=== PATIENT | female | born 1955 | race Caucasian/White ===

== ENCOUNTER → 2019-01-28 | Outpatient (CLI) | payer OTHER ==
[~2019-01-28] MED LIST: ALBU90OI; ASPI81CH; ESTR2; Omeprazole20 M1
== END | disposition home or self-care (01) ==
LOC: LAB SHORT 14:58 → LAB 14:58
PROVIDERS: Family Medicine
DX: Z12.72 Encounter for screening for malignant neoplasm of vagina (principal); Z90.710 Acquired absence of both cervix and uterus
CPT/HCPCS: G0123

== ENCOUNTER → 2020-02-10 | Outpatient (CLI) | payer OTHER ==
[~2020-02-10] MED LIST changes: -ALBU90OI; +ALBU90OI INH; +ALLERCLEAR10 MG PO; -ASPI81CH; +Aspirin EC81 MG PO; +BENADRYL25 MG PO; +EPIPEN0.3 MG/0.3 IM; -ESTR2; +ESTRADIOL1 MG PO; +FISH OIL 1,2001 EAC1 PO; +MONT10T PO; +NITR.4SL SL; +OCEAN104 ML; -Omeprazole20 M1; +Omeprazole20 M1 PO; +PANT20 PO; +REPATHA SU140 MG/1 M SQ; +SYMBICORT 80-10.2 GM INH; +TICA90TA PO
[2020-02-10 16:01] LABS: BASOPHILS ABSOLUTE AUTO 0.04 K/mm3 (0.00-0.23); BASOPHILS PERCENT AUTO 1 % (0-2); EOSINOPHILS ABSOLUTE AUTO 0.19 K/mm3 (0.00-0.68); EOSINOPHILS PERCENT AUTO 3 % (0-6); IMMATURE GRAN ABSOLUTE AUTO 0.01 K/mm3 (0.00-0.10); IMMATURE GRAN PERCENT AUTO 0 % (0-1); LYMPHOCYTES ABSOLUTE AUTO 2.59 K/mm3 (0.84-5.20); LYMPHOCYTES PERCENT AUTO 35 % (21-46); MONOCYTES ABSOLUTE AUTO 0.54 K/mm3 (0.16-1.47); MONOCYTES PERCENT AUTO 7 % (4-13); Mean Corpuscular HGB 29.6 pg (26.0-34.0); Mean Corpuscular HGB Conc 32.6 g/dL (31.5-36.5); Mean Corpuscular Volume 91 fL (80-100); Mean Platelet Volume 9.8 fL (9.1-12.4); NEUTROPHILS ABSOLUTE AUTO 4.13 K/mm3 (1.96-9.15); NEUTROPHILS PERCENT AUTO 55 % (41-73); Platelet Count 298 K/mm3 (150-400); RDW Coefficient Variation 12.9 % (11.7-14.2); RDW Standard Deviation 42.4 fL (35.1-46.3); Red Blood Cell Count 4.73 M/mm3 (3.80-5.20)
[2020-02-10 16:47] LABS: Alanine Aminotransfer (ALT/SGP 28 U/L (12-78); Albumin, Blood 4.1 g/dL (3.4-5.0); Albumin/Globulin Ratio 1.1 (0.8-1.8); Alk Phos 89 U/L (50-136); Anion Gap 8 mmol/L (6-16); Aspartate Aminotrans (AST/SGOT 20 U/L (12-37); Bilirubin, Total 0.4 mg/dL (0.1-1.0); Blood Urea Nitrogen 20 mg/dL (8-24); Bun/Creatinine Ratio 22.8 (12.0-20.0); CHOL/HDL RATIO 5.6; CO2, Blood 25 mmol/L (21-32); Calcium, Blood 9.5 mg/dL (8.5-10.1); Chloride, Blood 104 mmol/L (98-108); Cholesterol 271 mg/dL (50-200); Creatinine, Blood 0.88 mg/dL (0.40-1.00); Globulin, Blood 3.6 g/dL (2.2-4.0); Glomerular Filtration Rate >60 (60-); Glucose, Blood 104 mg/dL (70-99); HDL Cholesterol 48 mg/dL (>39); LDL/HDL RATIO 3.6; Low Density Lipoprotein Chol 174 mg/dL (0-110); Potassium, Blood 4.3 mmol/L (3.5-5.5); Sodium, Blood 137 mmol/L (136-145); Total Protein, Blood 7.7 g/dL (6.4-8.2); Triglycerides 243 mg/dL (30-160); Very Low Density Lipoprot Chol 48 mg/dL (6-32)
== END ==
LOC: LAB 14:06 → LAB SHORT 14:06
PROVIDERS: Family Medicine
DX: E78.2 Mixed hyperlipidemia (principal); I10 Essential (primary) hypertension
CPT/HCPCS: 80053; 80061; 85025

== ENCOUNTER 2020-05-13 09:28 | Inpatient (IN) | payer OTHER, MEDICARE ==
[~2020-05-13] VITALS: Ht 154.9 cm; Wt 66.3 kg
[~2020-05-13 09:28] MED LIST changes: -ALLERCLEAR10 MG PO; -BENADRYL25 MG PO; -EPIPEN0.3 MG/0.3 IM; -FISH OIL 1,2001 EAC1 PO; -MONT10T PO; -NITR.4SL SL; -OCEAN104 ML; -PANT20 PO; -REPATHA SU140 MG/1 M SQ; -SYMBICORT 80-10.2 GM INH; -TICA90TA PO
[2020-05-13 10:16] LABS: BASOPHILS ABSOLUTE AUTO 0.05 K/mm3 (0.00-0.23); BASOPHILS PERCENT AUTO 1 % (0-2); EOSINOPHILS ABSOLUTE AUTO 0.18 K/mm3 (0.00-0.68); EOSINOPHILS PERCENT AUTO 3 % (0-6); Hematocrit 40.4 % (33.0-51.0); IMMATURE GRAN ABSOLUTE AUTO 0.01 K/mm3 (0.00-0.10); IMMATURE GRAN PERCENT AUTO 0 % (0-1); LYMPHOCYTES ABSOLUTE AUTO 2.24 K/mm3 (0.84-5.20); LYMPHOCYTES PERCENT AUTO 34 % (21-46); MONOCYTES ABSOLUTE AUTO 0.55 K/mm3 (0.16-1.47); MONOCYTES PERCENT AUTO 8 % (4-13); Mean Corpuscular HGB 30.3 pg (26.0-34.0); Mean Corpuscular HGB Conc 34.7 g/dL (31.5-36.5); Mean Corpuscular Volume 87 fL (80-100); Mean Platelet Volume 9.5 fL (9.1-12.4); NEUTROPHILS ABSOLUTE AUTO 3.55 K/mm3 (1.96-9.15); NEUTROPHILS PERCENT AUTO 54 % (41-73); Platelet Count 270 K/mm3 (150-400); RDW Coefficient Variation 12.5 % (11.7-14.2); RDW Standard Deviation 40.2 fL (35.1-46.3); Red Blood Cell Count 4.62 M/mm3 (3.80-5.20); White Blood Cell Count 6.58 K/mm3 (4.00-11.30)
[2020-05-13 10:54] LABS: Alanine Aminotransfer (ALT/SGP 24 U/L (12-78); Albumin, Blood 3.9 g/dL (3.4-5.0); Albumin/Globulin Ratio 1.1 (0.8-1.8); Alk Phos 80 U/L (50-136); Anion Gap 4 mmol/L (6-16); Aspartate Aminotrans (AST/SGOT 24 U/L (12-37); Bilirubin, Total 0.4 mg/dL (0.1-1.0); Blood Urea Nitrogen 17 mg/dL (8-24); Bun/Creatinine Ratio 22.8 (12.0-20.0); CO2, Blood 27 mmol/L (21-32); Calcium, Blood 9.2 mg/dL (8.5-10.1); Chloride, Blood 107 mmol/L (98-108); Creatinine, Blood 0.75 mg/dL (0.40-1.00); Globulin, Blood 3.6 g/dL (2.2-4.0); Glomerular Filtration Rate >60 (60-); Glucose, Blood 92 mg/dL (70-99); Potassium, Blood 4.3 mmol/L (3.5-5.5); Sodium, Blood 138 mmol/L (136-145); Total Protein, Blood 7.5 g/dL (6.4-8.2)
[2020-05-13 10:56] LABS: Troponin I 0.527 ng/mL (0.000-0.040)
[2020-05-13 11:52] LABS: International Normalized Ratio 0.98; Prothrombin Time Results 10.5 Sec (9.7-11.5)
[2020-05-13] MEDS ORDERED: EPIPEN0.3 MG/0.3 IM (11:58)
[2020-05-13] MEDS ORDERED: SYMBICORT 80-10.2 GM INH (11:59)
[2020-05-13] MEDS ORDERED: MONT10T PO (12:00)
[2020-05-13] MEDS ORDERED: OCEAN104 ML (12:00)
[2020-05-13] MEDS ORDERED: BENADRYL25 MG PO (12:01)
[2020-05-13] MEDS ORDERED: ALLERCLEAR10 MG PO (12:01)
--- NOTE | 2020-05-13 15:48 | NUR ---
1514 MD GASCA CALLED FOR CRITICAL TROPONIN, UP FROM 0.527 TO 0.558. INJECTION MOLDING MACHINE TENDER ALSO CALLED TO UPDATE. STATES THAT HE WILL BE IN TO SEE HER TODAY
--- NOTE | 2020-05-13 16:03 | NUR ---
ECHOCARDIOGRAM COMPLETED
--- NOTE | 2020-05-13 17:56 | NUR ---
DR. MONTALVO CAME TO SEE PT, DISCUSSED POSSIBLE PCI IN THE AM TOMORROW. PTS BP'S ARE HIGH THIS AFTERNOON AND HAD RN PUT IN ORDER FOR LISINIPRIL 10MG ONE TIME DOSE. PT CAN HAVE DINNER AND THEN BE NPO AFTER MIDNIGHT. PTS WANT TO COME TO SEE HER BEFOR EPROCEDURE AND DR. MONTALVO SAID THSAT HE COULD. WILL PASS ON TO ONCOMING NURSE
--- NOTE | 2020-05-13 19:25 | NUR ---
ASSUMED CARE: RECEIVED BEDSIDE REPORT FROM DAY RN. PT RESTING WITH LIGHT OFF IN THE ROOM, BUT AWAKE. PT PARTICIPATES IN REPORT ASKING QUESTIONS. CALL LIGHT IN REACH. VSS AT THIS TIME.
--- NOTE | 2020-05-13 20:53 | NUR ---
BLOOD BEING DRAWN AT THIS TIME.
--- NOTE | 2020-05-14 00:29 | NUR ---
[facility] EVENT: PT UP TO TOILET WITH SBA. GOWN GOT WET PT STOOD FROM TOILET AND ASKED FOR A NEW GOWN. PCT WAS ASSISTING PT WITH GOWN CHANGE WHEN PT STATES TO PCT LUIS CARLOS RESENDIZ SHE WAS FEELING LIGHT HEADED AND NAUSIOUS PCT HAD PT SIT DOWN IN THE RECLINER INSTEADY OF GOING TO THE BED D/T LIGHTHEADEDNESS. PCT NOTIFIED THIS RN, VANNESSA PROCTORIRED FOR PT UPON ENTERING ROOM PT TELLS THIS RN SHE IS FEELING NAUSIOUS AND FEELS LIKE SHE IS GOING TO PASS OUT. ZOFRAN ADMINISTERED AND RECLINER MOVED CLOSER TO THE BED SO PT COULD TRANSFER. BEFORE PT WAS ABLE TO TRANSFER PT STATES SHE IS SEEING "STARS" AND FACE BEGINS TO DROOP AND PT BEGINS TO DROOP IN THE CHAIR. RN CALLS FOR ASSISTANCE AND PICKS PT UP AND LAYS HER DOWN IN THE BED. PT'S FACE TURNS RED, BUT PT VERBALLY RESPONDS TO THIS RN. NO RHYTHM OR RATE CHANGE NOTED ON THE MONITOR, BUT BP NOTICED TO BE 94/57. DR MONTALVO CALLED AND MADE AWARE OF THE EVENT. ORDER FOR BEDREST THE REMAINDER OF THE NIGHT WELL A 250ML OVER ONE HOUR. PT STATES CONCERS THAT SHE WANTS TO BE A FULL CODE AND TO DO EVERYTHING POSSIBLE TO GET HER BACK IN THE CASE OF A CARDIAC EVENT. PT STATES SHE DOESN'T WANT TO CALL HER AT THIS TIME BECAUSE SHE DOES NOT WANT TO SCARE HIM AND ASKS HER SISTER BE CALLED FIRST IS SOMETHING HAPPENS SO SHE CAN NOTIFY HER . WILL CONTINUE TO MONITOR AND ASSESS FURTHER.
--- NOTE | 2020-05-14 01:31 | NUR ---
LOW BP: AFTER 250ML OF NS COMPLETED BP DROPPED AGAIN, SEE VS FLOW SHEET. TALKED TO DR PAREKH AND HE ORDERED ANOTHER 500ML BOLUS OF NS FOR PT.
--- NOTE | 2020-05-14 03:00 | NUR ---
CALL TO DR MONTALVO: PT BP IS STILL LOW AFTER RECEIVING THE 250ML OVER 1 HOUR THE 500ML BOLUS. [address] DR MONTALVO TO NOTIFY HIM OF HER BP STILL REMAINING LOW AND TO DISCUSS WHAT HE WOULD LIKE TO DO. AFTER A VERY THROUGH DISCUSSION A LOW DOSE OF DOPAMINE WAS ORDERED 3-5 MCG/KG/MIN AND TO PLACE PT IN TRENDELENBERG. AFTER PLACING PT IN TRENDELENBERG AND STARTING DOPAMINE AT 3MCG/KG/MIN PT BEGAN TO FEEL POUNDING IN HER CHEST ALTHOUGH HEART MONITOR WAS NOT SHOWING ANY CHANGES OTHER THAN A SLIGHT RATE INCREASE FROM 60'S TO 70'S, AND PT APPEARD TO BE VERY PANICED. PT STATED SHE WAS ALSO STARTED TO FEEL LIGHT HEADED AND GET A HEADACHE. SBP WAS NOTED IN THE 70'S INCREASED DOPAMINE 5MCG/KG/MIN UNTIL BP CAME UP. AFTER SBP WAS NOTED TO BE 130'S PLACED PT FLA IN THE BED AND SBP REMAINED ELIVATED. DR PAREKH CALLED TO COME ASSESS PT D/T PRESENTATION AND NEW PRESENTATION WHILE LAYING IN THE BED. DECREASED DOPAMINE TO 3MCG/KG/MIN OVER TO AND PT SBP IS NOTED TO STAY BETWEEN 110'S AND 120'S. THIS RN REMAINS IN ROOM WITH PT TALKING TO HER AND CONTINUEING TO MONITOR PHYSICAL PRESENTATION AND VITAL SIGNS. BY THE TIME DR PAREKH ARRIVES PT BP IS MORE STABLE, MINIMAL PAIN IS NOTED IN RIB'S LOWER CHEST AREA. WILL CONTINUE TO MONIOTOR AND ASSESS FURTHER.
[2020-05-14 03:21] LABS: BASOPHILS ABSOLUTE AUTO 0.04 K/mm3 (0.00-0.23); BASOPHILS PERCENT AUTO 0 % (0-2); EOSINOPHILS ABSOLUTE AUTO 0.22 K/mm3 (0.00-0.68); EOSINOPHILS PERCENT AUTO 2 % (0-6); Hematocrit 36.5 % (33.0-51.0); Hemoglobin 12.8 g/dL (11.5-16.0); IMMATURE GRAN ABSOLUTE AUTO 0.02 K/mm3 (0.00-0.10); IMMATURE GRAN PERCENT AUTO 0 % (0-1); LYMPHOCYTES ABSOLUTE AUTO 2.67 K/mm3 (0.84-5.20); LYMPHOCYTES PERCENT AUTO 27 % (21-46); MONOCYTES ABSOLUTE AUTO 0.74 K/mm3 (0.16-1.47); MONOCYTES PERCENT AUTO 8 % (4-13); Mean Corpuscular HGB 30.5 pg (26.0-34.0); Mean Corpuscular HGB Conc 35.1 g/dL (31.5-36.5); Mean Corpuscular Volume 87 fL (80-100); Mean Platelet Volume 9.6 fL (9.1-12.4); NEUTROPHILS ABSOLUTE AUTO 6.18 K/mm3 (1.96-9.15); NEUTROPHILS PERCENT AUTO 63 % (41-73); Platelet Count 239 K/mm3 (150-400); RDW Coefficient Variation 12.6 % (11.7-14.2); RDW Standard Deviation 40.1 fL (35.1-46.3); Red Blood Cell Count 4.19 M/mm3 (3.80-5.20); White Blood Cell Count 9.87 K/mm3 (4.00-11.30)
[2020-05-14 03:40] LABS: Anion Gap 4 mmol/L (6-16); Blood Urea Nitrogen 15 mg/dL (8-24); Bun/Creatinine Ratio 17.5 (12.0-20.0); CO2, Blood 28 mmol/L (21-32); Calcium, Blood 8.6 mg/dL (8.5-10.1); Chloride, Blood 108 mmol/L (98-108); Creatinine, Blood 0.86 mg/dL (0.40-1.00); Glomerular Filtration Rate >60 (60-); Glucose, Blood 113 mg/dL (70-99); Potassium, Blood 3.8 mmol/L (3.5-5.5); Sodium, Blood 140 mmol/L (136-145)
--- NOTE | 2020-05-14 06:42 | NUR ---
DR PAREHK: AFTER ASSESSING PT ORDER FOR D-DIMER ORDERED IF ELIVATED WILL LOOK INTO POSSIBLE CT. ALTHOUGH DR PARKEH STATES CONCERNS WITH ORDERING A CT WITH CONTRAST IF PT IS GOING TO BE GOING FOR AN ANGIOGRAM. ARIVES THIS MORNING AND GAVE UPDATE TO .
--- NOTE | 2020-05-14 07:45 | NUR ---
ASSUMED CARE REPORT FROM PAMELA ANDREWS. PT RESTING IN BED. STATES SHE IS FEELING BETTER SINCE SYNCOPIAL EPISODE LAST NOC. A&OX 4. ANSWERS QUESTIONS APPROPRIATELY. DENIES NEEDS. DENIES CHEST PAIN. REPORTS GENERALIZED WEAKNESS. LUNGS CLEAR. PT P/W/D. HR 80'S. DOPAMINE GTT AT 3 MCG/MIN, HEPARIN GTT 13 UNITS/KG/HR. PLAN FOR PT TO GO TO ARCHITECTURAL DRAFTSMAN FOR ANGIOGRAM THIS SHIFT. WILL CONTINUE TO MONITOR.
[2020-05-14 10:17] LABS: Influenza A, PCR NEGATIVE (NEGATIVE); Influenza B, PCR NEGATIVE (NEGATIVE); Resp Syncytial Virus, PCR NEGATIVE (NEGATIVE); SARS-Cov-2 (COVID-19) PCR, MMC NEGATIVE (NEGATIVE)
--- NOTE | 2020-05-14 15:12 | NUR ---
PT BACK TO ICU FROM CREDIT OFFICER. REPORT FROM RUDDY ANDREWS. PT HAD TWO STENTS PLACED TO LAD, PROX, MID. PLAN TO RETURN TO LAB IN 2 DAYS FOR STENT TO RCA. RIGHT RADIAL ACCESS. TR BAND c [address]. NO BRUISING, SWELLING, TENDERNESS. CAP REFILL >3 SEC. DENIES NUMBNESS OR TINGLING. REPORTS SLIGHT "THROBBING." VSS. SO AT BEDSIDE. WILL CONTINUE TO MONITOR.
--- NOTE | 2020-05-14 16:25 | NUR ---
Assumed care: Report recieved from JULIANA Csatro. pt resting in bed, awake, talking to staff. TR band to right wrist with small amount of puffiness above band but no sign of bruising or swelling at this time. VSS, no acute needs or concerns. Saline locked.
--- NOTE | 2020-05-14 16:46 | NUR ---
3CC AIR REMOVED AT THIS TIME WITH NO SIGN OF BLEEDING OR HEMATOMA
--- NOTE | 2020-05-14 17:45 | NUR ---
SHIFT SUMMARY: PT AWAKE AND TALKING TO STAFF, VITAL SIGNS STABLE. TOTAL OF 7CC REMOVED FROM TR BAND WITH NO DRAINAGE OR BRUISING NOTED AT THIS TIME. PER REPORT FROM LUIS, PLAN IS TO REMAIN ICU STATUS OVERNIGHT THEN CHANGE STATUS TOMORROW. NO ACUTE NEEDS OR CONCERNS AT THIS TIME.
--- NOTE | 2020-05-14 21:45 | NUR ---
ASSUMED CARE AT 1900 PT LAYING IN BED, ALERT/ORIENTED X4, AND ABLE TO MAKE HER NEEDS KNOWN. PT IS WEAK AND REQUESTS ONE PERSON ASSISTS. SPO2 >95% ON RA. HR 70-80'S. SBP 100-110, MAP >65; NO C/O CHEST PAIN, DYSPNEA, NAUSEA, OR BEING LIGHTHEADED WHEN STANDING. TR BAND TO RT WRIST, NO SIGNS OF BLEEDING; DISTAL FINGERS WARM TO TOUOGH, PLAN TO CONT TO SLOWLY LETTING AIR OUT OF TR BAND. PT STATES BLADDER SPASMS THAT OCCUR AT BASELINE; PT IS A ONE PERSON ASSIST TO STAND AND PIVOT TO BEDSIDE COMMODE. NS INFUSING AT 75ML/HR. SEE SHIFT ASSESSMENT FOR FULL ASSESSMENT.
[2020-05-15 03:41] LABS: BASOPHILS ABSOLUTE AUTO 0.02 K/mm3 (0.00-0.23); BASOPHILS PERCENT AUTO 0 % (0-2); EOSINOPHILS ABSOLUTE AUTO 0.16 K/mm3 (0.00-0.68); EOSINOPHILS PERCENT AUTO 2 % (0-6); Hematocrit 34.3 % (33.0-51.0); Hemoglobin 11.7 g/dL (11.5-16.0); IMMATURE GRAN ABSOLUTE AUTO 0.02 K/mm3 (0.00-0.10); IMMATURE GRAN PERCENT AUTO 0 % (0-1); LYMPHOCYTES ABSOLUTE AUTO 1.76 K/mm3 (0.84-5.20); LYMPHOCYTES PERCENT AUTO 23 % (21-46); MONOCYTES ABSOLUTE AUTO 0.71 K/mm3 (0.16-1.47); MONOCYTES PERCENT AUTO 9 % (4-13); Mean Corpuscular HGB 30.2 pg (26.0-34.0); Mean Corpuscular HGB Conc 34.1 g/dL (31.5-36.5); Mean Corpuscular Volume 89 fL (80-100); Mean Platelet Volume 9.5 fL (9.1-12.4); NEUTROPHILS ABSOLUTE AUTO 4.98 K/mm3 (1.96-9.15); NEUTROPHILS PERCENT AUTO 65 % (41-73); Platelet Count 220 K/mm3 (150-400); RDW Coefficient Variation 12.9 % (11.7-14.2); RDW Standard Deviation 41.5 fL (35.1-46.3); Red Blood Cell Count 3.87 M/mm3 (3.80-5.20); White Blood Cell Count 7.65 K/mm3 (4.00-11.30)
[2020-05-15 04:00] LABS: Anion Gap 4 mmol/L (6-16); Blood Urea Nitrogen 16 mg/dL (8-24); Bun/Creatinine Ratio 20.7 (12.0-20.0); CO2, Blood 24 mmol/L (21-32); Calcium, Blood 8.5 mg/dL (8.5-10.1); Chloride, Blood 114 mmol/L (98-108); Creatinine, Blood 0.77 mg/dL (0.40-1.00); Glomerular Filtration Rate >60 (60-); Glucose, Blood 103 mg/dL (70-99); Potassium, Blood 3.8 mmol/L (3.5-5.5); Sodium, Blood 142 mmol/L (136-145)
--- NOTE | 2020-05-15 05:32 | NUR ---
END OF SHIFT SUMMARY PT SLEPT FOR SEVERAL HOURS T/O THE NIGHT, IS ALERT/ORIENTED X4, AND ABLE TO MAKE HER NEEDS KNOWN. PT NO C/O PAIN, DYSPNEA, OR NAUSEA. AFEBRILE. SPO2 >98% ON RA. HR 70-80'S. SBP 100-120, MAP >65. PT ABLE TO ASSIST WITH USING BEDPAN AND TRANSFERING TO BEDSIDE COMMODE. RT RADIAL SITE SHOWS NO SIGNS OF BLEEDING OR HEMATOMA, ALL AIR IS OUT OF TR BAND AND TR BAND IS NOW REMOVED, CLEAR DRESSING OVER SITE AND ARM BOARD IN PLACE. PT AWARE OF RT WRIST LIMITATIONS. WILL REPORT TO AM RN WHEN AVAILABLE.
--- NOTE | 2020-05-15 08:15 | NUR ---
REPORT RECEIVED FROM ZEENAT ANDREWS, ASSUMED CARE OF PATIENT ALONGSIDE JULIANA MENDEZ. PATIENT IS ALERT AND ORIENTED, RESPONDS APPROPRIATELY TO QUESTIONS, MOVES INDEPENDENTLY IN ROOM WITH SOME ASSISTANCE WITH LINES. NORMAL SINUS RHYTHM, SYSTOLIC BP IS IN THE 100S AND STABLE, AND HR IS 70-80 BPM. LAST BM WAS 3 DAYS AGO 05/12 AND PATIENT STATES THAT SHE WANTS TO EAT MEALS AND AMBULATE IN ROOM TO STIMULATE HER BOWELS AT THIS TIME. PATIENT VOIDS URINE WITHOUT DIFFICULTY. RIGHT RADIAL PUNCTURE SITE IS WNL AND DRESSING IS C/D/I. RIGHT WRIST IMMOBILIZER IN PLACE, PATIENT TOLERATING WELL. PATIENT DOES NOT STATE NAUSEA OR PAIN AND IS RESTING COMFORTABLY WITH CALL LIGHT IN REACH.
--- NOTE | 2020-05-15 08:20 | NUR ---
ASSUMED CARE: REPORT RECIEVED FROM ZEENAT Floyd RN. ASSUMED CARE OF THIS PT AT APPROX 0700 W/ HEARING AID DISPENSER CHRISTIAN RODRÍGUEZ. STUDENT WILL COMPLETE PRIMARY DOCUMENTATION FOR THIS PT W/ REVIEW BY THIS RN.
[2020-05-15 11:02] LABS: Source, Urine Clean Catch
[2020-05-15 11:05] LABS: Appearance, Urine Clear (Clear); Bilirubin, Urine Neg (Neg); Blood, Urine Neg (Neg); Color, Urine Yellow (P-Yellow); Glucose Qualitative, Urine Neg (Neg); Ketones, Urine Neg (Neg); Leukocyte Esterase, Urine 3+ (Neg); Nitrite, Urine Neg (Neg); Protein, Urine Neg (Neg); Specific Gravity, Urine 1.005 (1.003-1.022); Urobilinogen, Urine NORM (Normal)
[2020-05-15 12:00] LABS: Bacteria Many /hpf; Red Blood Cells, Urine 0-2 /hpf (0-2); Squamous Epithelial Cells Few /hpf (Few); White Blood Cells, Urine 25-50 /hpf (0-5)
--- NOTE | 2020-05-15 12:10 | NUR ---
DR GASCA: PROVIDER AT BEDSIDE THIS AM TO NAT PT. SHE WOULD LIKE A UA TO BE COLLECTED VIA CLEAN CATCH. NO OTHER CHANGES AT THIS TIME.
[2020-05-15 12:45] LABS: CHOL/HDL RATIO 4.5; Cholesterol 200 mg/dL (50-200); HDL Cholesterol 44 mg/dL (>39); LDL/HDL RATIO 2.5; Low Density Lipoprotein Chol 111 mg/dL (0-110); Triglycerides 224 mg/dL (30-160); Very Low Density Lipoprot Chol 44 mg/dL (6-32)
--- NOTE | 2020-05-15 18:03 | NUR ---
SHIFT SUMMARY: PATIENT REMAINS A/O AND CALLS APPROPRIATELY. SHE TRANSFERRED FROM BED TO CHAIR AND TOILET WITHOUT DIFFICULTY, PAIN, OR DIZZINESS. SYSTOLIC BP AVERAGES IN THE 100-130 RANGE WITH HR 80-100 BPM. RIGHT WRIST PUNCTURE SITE REMAINS C/D/I WITH SLIGHT BRUISING MENTIONED IN CHARTING. IMMOBILIZER IN PLACE AND TOLERATED WELL. A NEW ORDER FOR COLACE WAS GIVEN SINCE THE PATIENT HAS NOT HAD A BOWEL MOVEMENT SINCE 05/12. A DIETARY CONSULT WAS ORDERED PER PATIENT REQUEST TO PROVIDE EDUCATION ABOUT A CARDIAC DIET.
--- NOTE | 2020-05-15 19:55 | NUR ---
SHIFT ASSESSMENT ASSUMED CARE OF PT @ 1900. REPORT RECEIVED FROM CHRISTIAN, MISSILE TECHNICIAN AND ANDREA RN. PT ALERT AND ORIENTED. SITTING AT BEDSIDE CHAIR. NO COMPLAINTS AT THIS TIME. R WRIST IMMOBILIZER PLACED BACK ON PT. R WRIST INSERTION SITE C/D, NO HEMATOMA PRESENT OR SIGNS OF BLEEDING. PT A ONE PERSON ASSIST TO BEDSIDE COMMODE. EASILY WALKED BACK TO THE BED WITH THIS NURSES MANAGING LINES. WILL CONTINUE TO MONITOR CLOSELY.
[2020-05-16 03:28] LABS: BASOPHILS ABSOLUTE AUTO 0.03 K/mm3 (0.00-0.23); BASOPHILS PERCENT AUTO 0 % (0-2); EOSINOPHILS ABSOLUTE AUTO 0.21 K/mm3 (0.00-0.68); EOSINOPHILS PERCENT AUTO 3 % (0-6); Hematocrit 34.4 % (33.0-51.0); Hemoglobin 11.8 g/dL (11.5-16.0); IMMATURE GRAN ABSOLUTE AUTO 0.03 K/mm3 (0.00-0.10); IMMATURE GRAN PERCENT AUTO 0 % (0-1); LYMPHOCYTES ABSOLUTE AUTO 1.98 K/mm3 (0.84-5.20); LYMPHOCYTES PERCENT AUTO 25 % (21-46); MONOCYTES ABSOLUTE AUTO 0.77 K/mm3 (0.16-1.47); MONOCYTES PERCENT AUTO 10 % (4-13); Mean Corpuscular HGB 30.3 pg (26.0-34.0); Mean Corpuscular HGB Conc 34.3 g/dL (31.5-36.5); Mean Corpuscular Volume 88 fL (80-100); Mean Platelet Volume 9.5 fL (9.1-12.4); NEUTROPHILS ABSOLUTE AUTO 5.04 K/mm3 (1.96-9.15); NEUTROPHILS PERCENT AUTO 62 % (41-73); Platelet Count 203 K/mm3 (150-400); RDW Coefficient Variation 12.8 % (11.7-14.2); RDW Standard Deviation 41.3 fL (35.1-46.3); White Blood Cell Count 8.06 K/mm3 (4.00-11.30)
[2020-05-16 03:48] LABS: Albumin, Blood 3.2 g/dL (3.4-5.0); Anion Gap 6 mmol/L (6-16); Blood Urea Nitrogen 16 mg/dL (8-24); Bun/Creatinine Ratio 19.3 (12.0-20.0); CO2, Blood 26 mmol/L (21-32); Chloride, Blood 109 mmol/L (98-108); Creatinine, Blood 0.83 mg/dL (0.40-1.00); Glomerular Filtration Rate >60 (60-); Glucose, Blood 102 mg/dL (70-99); Phosphorus, Blood 4.3 mg/dL (2.5-4.9); Sodium, Blood 141 mmol/L (136-145)
--- NOTE | 2020-05-16 06:28 | NUR ---
PT ABLE TO SLEEP FOR MOST OF THE NIGHT, STATES LAST NIGHT WAS SOME OF THE BEST REST SHE HAS HAD IN THE HOSPITAL. DENIES CP OR SOB. UP TO THE BEDSIDE COMMODE WITH NO ISSUES. STILL NO BOWEL MOVEMENT BUT STATES "MY STOMACH IS STARTING TO GURGLE". PT HAS BEEN NPO AFTER MIDNIGHT EXCEPT FOR SMALL SIP OF WATER WITH THE AM PROTONIX. NO OTHER COMPLAINTS OR CONCERNS, WILL CONTINUE TO MONITOR.
--- NOTE | 2020-05-16 08:15 | NUR ---
ASSUMED CARE / DR MORILLO: REPORT RECEIVED FROM DIPESH Floyd RN. ASSUMED CARE OF THIS PT AT APPROX 0700. ON ASSESSMENT, THE PT IS AWAKE, A&O. SHE IS PLEASANT & COOPERATIVE W/ CARE. DENIES PAIN OR SOB. ON RA W/ O2 SATS > 92%. MONITOR SHOWS SR W/ HR 70s, BP STABLE. PT HAS NO GI COMPLAINTS & IS CURRENTLY NPO FOR ANTICIPATED ANGIOGRAM THIS AM. SHE VOIDS URINE W/O DIFFICULTY & IS ABLE TO STAND/ AMBULATE FOR TRANSFERS W/ MIN ASSIST FOR CORDS/LINES. SKIN CONDITION OVERALL CDI & R RADIAL PUNCTURE SITE WNL. NO BLEEDING OR HEMATOMA FORMATION NOTED & SMALL AMNT OF BRUISING IS UNCHANGED FROM YESTERDAY's ASSESSMENT. DR MORILLO HAS BEEN AT BEDSIDE TO SEE THE PT & HAS CONFIRMED THAT SHE SHOULD BE GOING TO THE DRINKING WATER TECHNICIAN LATER THIS AM, HE BELIEVES AT APPROX 1100. WILL CONTINUE TO MONITOR & UPDATE NEEDED.
--- NOTE | 2020-05-16 10:40 | NUR ---
DR GASCA: PROVIDER AT BEDSIDE TO EVAL PT. STS NO CHANGES AT THIS TIME. CHOLESTEROL & TRIGLYCERIDES HAVE BEEN DISCUSSED W/ THE PT & SHE UNDERSTANDS THE NEED FOR CONTINUED DIETARY ADJUSTMENTS & POSSIBLY MEDICATION THERAPY TO IMPROVE CHOLESTEROL.
--- NOTE | 2020-05-16 12:35 | NUR ---
DR MONTALVO: PROVIDER AT BEDSIDE TO EVAL PT. NO CHANGES AT THIS TIME. HE WOULD LIKE THE PT TO F/U WITH HIM AN OUTPATIENT APPROX 2 WKS AFTER DISCHARGE HOME.
--- NOTE | 2020-05-16 14:31 | NUR ---
NEWS CAMERA OPERATOR: [facility] RN IN UNIT TO TAKE PT FOR REPEAT ANGIOGRAM & STENTING OF RCA. PT TAKEN OUT OF ROOM VIA BED AT APPROX 1420.
--- NOTE | 2020-05-16 16:03 | NUR ---
RETURN FROM [facility]: PT BACK TO ICU-16 AT APPROX 1555. BEDSIDE REPORT RECIEVED FROM [facility] MEDICAL COLLECTIONS REPRESENTATIVE RN. PER REPORT, 1 STENT PLACED TO MID-PROXIMAL RCA. R RADIAL PUNCTURE SITE WNL, NO BLEEDING, NEW BRUISING OR HEMATOMA FORMATION NOTED. TR BAND IN PLACE W/ 15 CC AIR, PLACED AT 1540. CAP REFILL < 3 SECONDS TO AFFECTED DIGITS W/ STRONG PLETH NOTED ON SPO2 WAVEFORM. PT STS HAVING A "LITTLE BIT" OF PAIN TO THE RADIAL SITE BUT OVERALL STS COMFORT. LAST ACT > 200, WILL PLAN TO BEGIN TR BAND DEFLATION AT APPROX 1740.
--- NOTE | 2020-05-16 16:46 | NUR ---
Patient gave consent to provide care and to observe cathertization procedure on 05/16/20.
--- NOTE | 2020-05-16 18:57 | NUR ---
SHIFT SUMMARY / DR MORILLO: ON RETURN FROM THE CURED MEATS SUPERVISOR, AN AREA OF ECCHYMOSIS PROXIMAL TO THE RADIAL SITE ON INNER RT FOREARM IS NOTED. CURED MEATS SUPERVISOR STAFF STATE THAT A PIECE OF TAPE WAS PULLED FROM THIS AREA & THAT THE PT BRUISED IMMEDIATELY. WITHIN APPROX 30 MINS THE AREA IS NOTED TO BE SLIGHTLY LARGER & HAS BEEN MARKED BY THIS RN. APPROX 15 MINS LATER IT IS NOTED THAT THE AREA IS NOW RAISED, FIRM & PAINFUL TO THE TOUCH. DR MORILLO AT BEDSIDE AT THIS TIME, APPROX 1700. HE HAS PLACED A RADIAL BP CUFF TO THE PROXIMAL FOREARM & INFLATED CUFF TO 150 MMHG. ONE TIME DOSE FENTANYL GIVEN DURING THIS TIME FOR PAIN DURING BP CUFF INFLATION. THE PROVIDER THEN STARTED TO REMOVE THE TR BAND WHICH HAD [address] WATER RESOURCES PROGRAM DIRECTOR, UMBERTO Murcia, NOTIFIED THE PHYSICIAN THAT THE TR BAND WAS STILL FULLY INFLATED & PROVIDER PROCEEDED TO REMOVE TR BAND & THE PT HAS HAD A SMALL AMNT OF BLEEDING FROM THE PUNCTURE SITE, MANUAL PRESSURE HELD. A SECONDARY BP CUFF HAS BEEN PLACED TO THE DISTAL FOREARM AT THIS TIME W/ 130 MMHG PRESSURE. THE PROVIDER WOULD LIKE THESE BP CUFFS TO REMAIN IN PLACE FOR APPROX 4 HRS TOTAL W/ GRADUAL DECREASE IN PRESSURE. OKAY TO REMOVE FOR ARTERIAL US THAT HAS BEEN ORDERED TO ASSESS FOR AV FISTULA VS HEMATOMA. BP CUFFS HAVE BEEN PARTIALLY DEFLATED TO A PROXIMAL PRESSURE OF 100 MMHG & DISTAL CUFF PRESSURE OF 60 MMHG FOR PT C/O SEVERE PAIN TO THE RT ARM & WORSENING PURPLE DISCOLORATION NOTED TO HAND & DIGITS. BP CUFFS FULLY REMOVED SHORTLY AFTER THIS FOR ARTERIAL US TO OCCUR. THIS RN HAS NOT REPLACED THE BP CUFFS AFTER US COMPLETED THERE IS NO FURTHER BLEEDING OR HEMATOMA FORMATION NOTED & THE PT IS EXPERIENCING SEVERE PAIN W/ BP CUFFS IN PLACE. KRYSTLE PATCH PLACED TO PUNCTURE SITE. WARM PACK HAS BEEN APPLIED TO THE PT's FOREARM & THE ARM HAS BEEN ELEVATED ON PILLOWS TO FACILITATE VENOUS RETURN OF EDEMA/ SWELLING. THE PT STS THAT HER PAIN HAS IMPROVED SLIGHTLY & THE HAND/ DIGITS ARE ONCE AGAIN PINK, WARM & HAVE CAP REFILL < 3 SECONDS. PT REMAINS A&O. SHE IS ON RA W/ O2 SATS > 92%. MONITOR SHOWS SR W/ HR 80s. BP STABLE, HTN AT TIMES W/ INCREASED PAIN. SHE HAS NO GI COMPLAINTS & HAS TOLERATED PO INTAKE OF CHICKEN BROTH & WATER WELL. PRIOR TO ABOVE MENTIONED INCIDENT, THE PT WAS ABLE TO STAND/ AMBULATE TO [facility] [place]. SKIN CONDITION OVERALL CDI, ASIDE FROM ABOVE MENTIONED ECCHYMOSIS & PUNCTURE SITE. REPORT HAS BEEN GIVEN TO ZEENAT Domingo RN TO ASSUME CARE.
--- NOTE | 2020-05-16 19:30 | NUR ---
ASSUMPTION OF CARE RECEIVED REPORT FROM ANDREA ANDREWS. ASSUMED CARE OF PATIENT. PATIENT A/O, VITALS STABLE ON ROOM AIR. RIGHT ARM ELEVATED ON PILLOW WITH HEAT PACK APPLIED. LARGE BRUISING MARKED AND NOTED TO FIGHT FOREARM, NO BLEEDING OR BRUISING NOTED TO RIGHT RADIAL SITE. NS INFUSING VIA POWERGLIDE TO LEFT UPPER EXTREMITY. PATIENT REPORTS TENDERNESS TO RUE AROUND BRUISED AREA BUT DENIED OTHER DISCOMFORTS. WILL REVIEW ORDERS AND TREAT PRESCRIBED.
--- NOTE | 2020-05-16 21:00 | NUR ---
PHYSICIAN UPDATE DR. MORILLO TO BEDSIDE TO ASSESS PATIENT AT 2015. REPORTED PETECHIAE TO RIGHT HAND AND THAT THE BLOOD PRESSURE CUFFS HAD BEEN REMOVED PER REPORTS OF NUMBNESS TO FINGERS AND CHANGES IN SKIN COLOR. DR. MORILLO WAS UNDERSTANDING, REVIEWED IMAGING OF RIGHT ARM, DISCONTINUED NORMAL SALINE AND APPROVED PATIENT TO EAT. PATIENT STATED SHE WAS HIGHLY SATISFIED WITH HER CARE AND STATED THE BRUISING WAS ONLY TEMPERORY AND SHE WAS THRILLED HER HEART HAD IMPROVED.
--- NOTE | 2020-05-17 | NUR ---
REASSESSMENT NO ACUTE CHANGES. PATIENT IN BED WITH EYES CLOSED, EASILY AWAKENS. DENIED DISCOMFORTS OR NEEDS. VITALS STABLE. PATIENT CONTINUES TO REST.
[2020-05-17 05:26] LABS: BASOPHILS ABSOLUTE AUTO 0.04 K/mm3 (0.00-0.23); BASOPHILS PERCENT AUTO 1 % (0-2); EOSINOPHILS ABSOLUTE AUTO 0.21 K/mm3 (0.00-0.68); EOSINOPHILS PERCENT AUTO 3 % (0-6); Hematocrit 32.5 % (33.0-51.0); Hemoglobin 11.1 g/dL (11.5-16.0); IMMATURE GRAN ABSOLUTE AUTO 0.02 K/mm3 (0.00-0.10); IMMATURE GRAN PERCENT AUTO 0 % (0-1); LYMPHOCYTES ABSOLUTE AUTO 1.73 K/mm3 (0.84-5.20); LYMPHOCYTES PERCENT AUTO 23 % (21-46); MONOCYTES ABSOLUTE AUTO 0.69 K/mm3 (0.16-1.47); MONOCYTES PERCENT AUTO 9 % (4-13); Mean Corpuscular HGB 30.4 pg (26.0-34.0); Mean Corpuscular HGB Conc 34.2 g/dL (31.5-36.5); Mean Corpuscular Volume 89 fL (80-100); Mean Platelet Volume 10.1 fL (9.1-12.4); NEUTROPHILS ABSOLUTE AUTO 4.78 K/mm3 (1.96-9.15); NEUTROPHILS PERCENT AUTO 64 % (41-73); Platelet Count 224 K/mm3 (150-400); RDW Coefficient Variation 12.7 % (11.7-14.2); RDW Standard Deviation 41.6 fL (35.1-46.3); Red Blood Cell Count 3.65 M/mm3 (3.80-5.20); White Blood Cell Count 7.47 K/mm3 (4.00-11.30)
[2020-05-17 05:36] LABS: Albumin, Blood 3.1 g/dL (3.4-5.0); Anion Gap 6 mmol/L (6-16); Blood Urea Nitrogen 14 mg/dL (8-24); Bun/Creatinine Ratio 17.7 (12.0-20.0); CO2, Blood 25 mmol/L (21-32); Calcium, Blood 9.1 mg/dL (8.5-10.1); Chloride, Blood 108 mmol/L (98-108); Creatinine, Blood 0.79 mg/dL (0.40-1.00); Glomerular Filtration Rate >60 (60-); Glucose, Blood 104 mg/dL (70-99); Phosphorus, Blood 3.9 mg/dL (2.5-4.9); Potassium, Blood 4.2 mmol/L (3.5-5.5); Sodium, Blood 139 mmol/L (136-145)
--- NOTE | 2020-05-17 06:00 | NUR ---
SHIFT SUMMARY PATIENT REMAINED A/O, RESTED COMFORTABLY THROUGH NIGHTS. STABLE VITAL SIGNS. BRUISING REMAINED TO RIGHT ARM WITH ICE PACKS PER DR. MORILLO'S RECOMMENDATION. PATIENT DENIED DISCOMFORTS THROUGH NIGHT. USED BEDSIDE COMMODE, STEADY GAIT, INDEPENDENT AMBULATION. BLOOD PRESSURE CUFF TO LEFT LOWER EXTREMITY DUE TO BRUISING ON RIGHT ARM AND POWER GLIDE PLACED TO LEFT ARM. IV FLUIDS WERE DISCONNECTED WHEN DISCONTINUED. WILL CONTINUE TO MONITOR AND REPORT TO ONCOMING RN.
--- NOTE | 2020-05-17 07:45 | NUR ---
ASSUMED CARE RECEIVED REPORT FROM JULIANA EPPERSON. PT IS ALERT AND ORIENTED X 4, VSS, DENIES CHEST PAIN AND SOB. SHE DENIES PAIN, AND NUMB/TINGLING IN HER RIGHT HAND, CAP REFIL IS < 3s, AND HAND IS WARM TO TOUCH. PT C/O SORENESS IN HER RIGHT FOREARM WHEN TOUCHED, SHE ALSO HAS ECCHYMOSIS IN RIGHT FOREARM, BUT IS SOFT (PER NOC RN, IT HAS BEEN GETTING MORE SOFT), RIGHT AC AREA HAS SOME REDNESS. NO PAIN UNLESS PALPATED. BED IS LOW AND LOCKED. CALL LIGHT WITHIN REACH.
--- NOTE | 2020-05-17 10:14 | NUR ---
UPDATE PT WAS ABLE TO GET UP TO COMMODE, AND THEN CHAIR WITH ONLY ASSISTANCE WITH MANAGING HER CHORDS AND IV LINES. SHE HAD A STEADY GAIT, AND STATED THAT SHE FELT FINE, DENIED LIGHTHEADEDNESS, AND DIZZINESS. VSS. CHAIR LOCKED. CALL LIGHT WITHIN REACH.
--- NOTE | 2020-05-17 10:52 | NUR ---
UPDATE DISCUSSED STATUS OF PT WITH DR. GASCA, INCLUDING EVENTS FROM LAST NIGHT AND SHE SAID THAT IF ITS OKAY WITH DR. MORILLO - THEN TO FOLLOW THROUGH WITH DISCHARGE, TO USE THE CURRENT DISCHARGE ORDERS PLACED YESTERDAY. WAITING TO COMMUNICATE WITH DR. MORILLO.
[2020-05-17] MEDS ORDERED: PANT20 PO (12:35)
[2020-05-17] MEDS ORDERED: FISH OIL 1,2001 EAC1 PO (12:36)
[2020-05-17] MEDS ORDERED: NITR.4SL SL (12:37)
[2020-05-17] MEDS ORDERED: TICA90TA PO (12:46)
--- NOTE | 2020-05-17 14:18 | NUR ---
PT DISCHARGED OUT OF ICU AT 1403. ALL PT QUESTIONS ANSWERED. RIGHT FOREARM BRUISED, BUT DID NOT APPEAR WORSENED FROM THIS MORNING. DR. MORILLO AND DR. GASCA HAVE BOTH SEEN AND EVALUATED PT AND APPROVED PT FOR DISCHARGE. PT REPORTS NO CHEST PAIN OR SOB. WAITING OUTSIDE FOR PICKUP.
== END 2020-05-17 14:03 | disposition home or self-care (01) | DRG 247 ==
LOC: ER 09:28 → ICUW 11:19
PROVIDERS: Emergency Medicine; Hospitalist; Internal Medicine Cardiovascular Disease; ADMIT Internal Medicine
PROC: 027035Z Dilation of Coronary Artery, One Artery with Two Drug-eluting Intraluminal Devices, Percutaneous Approach (ICD-10-PCS; principal; 2020-05-14)
PROC: 4A023N7 Measurement of Cardiac Sampling and Pressure, Left Heart, Percutaneous Approach (ICD-10-PCS; 2020-05-14)
PROC: B2111ZZ Fluoroscopy of Multiple Coronary Arteries using Low Osmolar Contrast (ICD-10-PCS; 2020-05-14)
DX: I21.4 Non-ST elevation (NSTEMI) myocardial infarction (principal); I25.10 Atherosclerotic heart disease of native coronary artery without angina pectoris; Z20.822 Contact with and (suspected) exposure to COVID-19; I95.2 Hypotension due to drugs; T45.7X5A Adverse effect of anticoagulant antagonists, vitamin K and other coagulants, initial encounter; K21.9 Gastro-esophageal reflux disease without esophagitis; J45.909 Unspecified asthma, uncomplicated; E78.5 Hyperlipidemia, unspecified; Z90.710 Acquired absence of both cervix and uterus; Z98.890 Other specified postprocedural states; Z88.8 Allergy status to other drugs, medicaments and biological substances; Z79.82 Long term (current) use of aspirin; Z79.899 Other long term (current) drug therapy; X58.XXXA Exposure to other specified factors, initial encounter
CPT/HCPCS: 0241U; 36415; 71046; 76937; 80048; 80053; 80061; 80069; 81001; 83690; 83735; 84484; 85025; 85347; 85379; 85610; 85730; 87077; 87086; 87186; 92978; 93005; 93010; 93306; 93454; 93571; 93572; 93931; 94640; 96365; 96375; 99152; 99153; 99285-25; A9270; C1725; C1751; C1753; C1769; C1874; C1887; C1894; C9600; J0360; J1265; J1644; J1650; J2250; J2370; J2405; J2720; J3010; J7030; J7040; J7050; Q9967

== ENCOUNTER 2020-06-02 08:22 | Emergency (ER) | payer OTHER ==
[~2020-06-02] VITALS: Ht 154.9 cm; Wt 67.1 kg
[~2020-06-02 08:22] MED LIST changes: +ALLERCLEAR10 MG PO; +BENADRYL25 MG PO; +EPIPEN0.3 MG/0.3 IM; +FISH OIL 1,2001 EAC1 PO; +MONT10T PO; +NITR.4SL SL; +OCEAN104 ML; +PANT20 PO; +SYMBICORT 80-10.2 GM INH; +TICA90TA PO
[2020-06-02] MEDS ORDERED: REPATHA SU140 MG/1 M SQ (08:34)
== END 2020-06-02 09:38 | disposition home or self-care (01) ==
LOC: ER 08:22
DX: Z02.89 Encounter for other administrative examinations (principal); R20.2 Paresthesia of skin; K21.9 Gastro-esophageal reflux disease without esophagitis; Z79.82 Long term (current) use of aspirin; Z79.899 Other long term (current) drug therapy; Z88.8 Allergy status to other drugs, medicaments and biological substances
CPT/HCPCS: 99283

== ENCOUNTER 2020-06-30 07:50 | Emergency (ER) | payer OTHER ==
[~2020-06-30] VITALS: Ht 157.5 cm; Wt 65.8 kg
[~2020-06-30 07:50] MED LIST changes: +REPATHA SU140 MG/1 M SQ
== END 2020-06-30 09:10 | disposition home or self-care (01) ==
LOC: ER 07:50
DX: I88.9 Nonspecific lymphadenitis, unspecified (principal); I25.2 Old myocardial infarction
CPT/HCPCS: 99282

== ENCOUNTER → 2020-09-05 | Outpatient (CLI) | payer OTHER ==
[2020-09-05 20:26] LABS: Alanine Aminotransfer (ALT/SGP 38 U/L (12-78); Alk Phos 82 U/L (50-136); Anion Gap 5 mmol/L (6-16); Aspartate Aminotrans (AST/SGOT 29 U/L (12-37); Bilirubin, Total 0.3 mg/dL (0.1-1.0); Blood Urea Nitrogen 20 mg/dL (8-24); Bun/Creatinine Ratio 19.2 (12.0-20.0); CO2, Blood 28 mmol/L (21-32); Calcium, Blood 9.4 mg/dL (8.5-10.1); Chloride, Blood 107 mmol/L (98-108); Creatinine, Blood 1.04 mg/dL (0.40-1.00); Glomerular Filtration Rate 53 (60-); Glucose, Blood 100 mg/dL (70-99); Sodium, Blood 140 mmol/L (136-145); Troponin I <0.015 ng/mL (0.000-0.040)
== END | disposition home or self-care (01) ==
LOC: LAB SHORT 16:20
PROVIDERS: Family Medicine
DX: R07.9 Chest pain, unspecified (principal)
CPT/HCPCS: 80053; 84484

== ENCOUNTER → 2021-09-03 | Outpatient (CLI) | payer OTHER ==
[~2021-09-03] MED LIST changes: +ISOSORBIDE MONO30 MG PO; +PANTOPRAZOLE SO40 M2 PO; +VASCEPA1 G1 PO
== END | disposition home or self-care (01) ==
LOC: LAB SHORT 14:05 → LAB 14:05
DX: R30.0 Dysuria (principal)
CPT/HCPCS: 87077; 87086; 87186

== ENCOUNTER → 2022-08-19 | Outpatient (CLI) | payer OTHER ==
[2022-08-19 14:39] LABS: BASOPHILS ABSOLUTE AUTO 0.05 K/mm3 (0.00-0.23); BASOPHILS PERCENT AUTO 1 % (0-2); EOSINOPHILS ABSOLUTE AUTO 0.14 K/mm3 (0.00-0.68); EOSINOPHILS PERCENT AUTO 2 % (0-6); Hematocrit 39.6 % (33.0-51.0); Hemoglobin 13.6 g/dL (11.5-16.0); IMMATURE GRAN ABSOLUTE AUTO 0.02 K/mm3 (0.00-0.10); IMMATURE GRAN PERCENT AUTO 0 % (0-1); LYMPHOCYTES PERCENT AUTO 24 % (21-46); MONOCYTES ABSOLUTE AUTO 0.44 K/mm3 (0.16-1.47); MONOCYTES PERCENT AUTO 6 % (4-13); Mean Corpuscular HGB 30.5 pg (26.0-34.0); Mean Corpuscular HGB Conc 34.3 g/dL (31.5-36.5); Mean Corpuscular Volume 89 fL (80-100); Mean Platelet Volume 9.2 fL (9.1-12.4); NEUTROPHILS ABSOLUTE AUTO 4.67 K/mm3 (1.96-9.15); NEUTROPHILS PERCENT AUTO 67 % (41-73); Platelet Count 280 K/mm3 (150-400); RDW Coefficient Variation 12.3 % (11.7-14.2); Red Blood Cell Count 4.46 M/mm3 (3.80-5.20); White Blood Cell Count 7.02 K/mm3 (4.00-11.30)
[2022-08-19 18:07] LABS: Albumin, Blood 3.9 g/dL (3.4-5.0); Albumin/Globulin Ratio 1.1 (0.8-1.8); Bilirubin, Total 0.3 mg/dL (0.1-1.0); Bun/Creatinine Ratio 18.1 (12.0-20.0); Calcium, Blood 9.3 mg/dL (8.5-10.1); Creatinine, Blood 0.99 mg/dL (0.40-1.00); Globulin, Blood 3.7 g/dL (2.2-4.0); Potassium, Blood 3.8 mmol/L (3.5-5.5); Total Protein, Blood 7.6 g/dL (6.4-8.2)
[2022-08-24 14:10] LABS: 25-HYDROXY, VITAMIN D 36 ng/mL (.); 25-HYDROXY, VITAMIN D-2 <1.0 ng/mL (.); 25-HYDROXY, VITAMIN D-3 36 ng/mL (.)
== END | disposition home or self-care (01) ==
LOC: LAB SHORT 13:20 → LAB 13:20
PROVIDERS: Family Medicine
DX: N39.0 Urinary tract infection, site not specified (principal); I10 Essential (primary) hypertension; E55.9 Vitamin D deficiency, unspecified
CPT/HCPCS: 36415; 80053; 85025; 87086

== ENCOUNTER → 2023-10-17 | Outpatient (CLI) | payer OTHER | END | disposition home or self-care (01) | LOC: LAB 18:49 → LAB SHORT 18:49 | DX: R39.11 Hesitancy of micturition (principal) | CPT/HCPCS: 87086 ==